=== PATIENT | male | born 2000 | race Caucasian/White ===

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

== ENCOUNTER → 2019-05-21 | Outpatient (CLI) | payer BC | LOC: COL.RAD 12:43 | DX: M25.511 Pain in right shoulder (principal); Z98.1 Arthrodesis status ==